=== PATIENT | female | born 1950 | race Caucasian/White ===

== ENCOUNTER → 2017-07-09 06:55 | Outpatient (CLI) | payer MEDICARE, OTHER, SELFPAY ==
--- NOTE | 2017-07-09 06:58 | ECHOCS_ITS ---
Reason For Study: DYSPNEA/SOB Procedure This was a 2D Doppler, Color Flow transthoracic echocardiogram. The study was technically difficult. Due to body habitus. Contrast injection was performed. Left Ventricle Normal LV size. Left ventricular systolic function is normal. The estimated ejection fraction is 60 %. Normal diastology for age. No regional wall motion abnormalities noted. Right Ventricle Normal RV size. Normal systolic function. Atria Normal left atrium. Normal right atrium. Mitral Valve Normal mitral valve. Tricuspid Valve Normal tricuspid valve. Mild (1+) tricuspid valve insufficiency. Pulmonary artery systolic pressure is 28 mmHg. Aortic Valve Normal aortic valve. Trisinus/trileaflet aortic valve. Pulmonic Valve Normal pulmonic valve. Great Vessels Normal aortic root. The pulmonary artery is normal size. Normal inferior vena cava. Pericardium/Pleural No pericardial effusion. Medication Diluted definity 2.0ml given slow IV push to enhance endocardial definition. MMode/2D Measurements & Calculations LVIDd: 4.1 cm IVSd: 1.1 cm Ao root diam: 3.0 cm LVIDs: 2.7 cm LVPWd: 1.1 cm LA dimension: 3.8 cm RVDd: 3.3 cm FS: 33.8 % LAV(MOD-bp): 50.6 ml LAV(MOD-bp) Indexed: 26.8 ml/m2 LA A4 area: 16.4 cm2 RA A4 area: 12.1 cm2 LAV(MOD-sp2): 57.9 ml LAV(MOD-sp4): 43.4 ml Doppler Measurements & Calculations MV E max luis: 97.6 cm/sec Lat Peak E' Luis: 9.6 cm/sec Med Peak E' Luis: 9.8 cm/sec MV A max luis: 87.6 cm/sec E/E' lat: 10.1 E/E' med: 10.0 MV E/A: 1.1 Ao V2 max: 168.2 cm/sec LV V1 max: 117.9 cm/sec PA V2 max: 78.7 cm/sec Ao max P.3 mmHg LV V1 max P.6 mmHg TR max luis: 238.6 cm/sec TR max P.2 mmHg Interpretation Summary Normal LV size. Left ventricular systolic function is normal. The estimated ejection fraction is 60 %. Normal diastology for age. Mild (1+) tricuspid valve insufficiency. Pulmonary artery systolic pressure is 28 mmHg. Contrast injection was performed. Ordering Physician: Manjit Henley MD Referring Physician: AVINASH Borden M.D. Performed By: Pricilla Peters, ELYSSA, RVT
--- NOTE | 2017-07-09 10:27 | STRESSREP_ITS ---
Stress Test Report Pharmacologic myocardial perfusion stress test. 67-year-old lady with a history of coronary artery disease status post carotid bypass surgery. Medications Lipitor aspirin losartan and metoprolol. Stress protocol: Resting EKG demonstrates normal sinus rhythm with a rate of 64 bpm normal intervals and noted resting blood pressure is 142/92 mmHg. 0.4 mg of regadenoson was infused per usual protocol followed by rapid intravenous saline flush injection continuous EKG monitoring was performed. At rest there were no ST or T-wave changes noted suggest abnormal flow reserve at peak infusion no ST or T-wave changes were noted suggest abnormal flow reserve. No clinical angina was noted. The resting blood pressure is 142/92 with a final blood pressure 138 /94. The peak blood pressure 150/92. Myocardial perfusion protocol. 14.2 mCi of technetium 99m sestamibi was injected at rest. 0.4 mg regadenoson was infused per usual protocol peak infusion 44.9 mCi 6 technetium 99m sestamibi was injected stress images were obtained stress and rest images were reconstructed and compared in the short axis vertical and horizontal long as gated images were also obtained Perfusion SPECT analysis: Review of the images demonstrate normal uptake of tracer noted in all areas myocardium no previous infarct was noted no ischemia was noted. The resting images demonstrated normal perfusion in all areas of the myocardium. Gated SPECT analysis. The gated ejection fraction is noted to be 65%. Conclusion: Normal pharmacologic myocardial perfusion stress test. Normal ejection fraction.
== END ==
PROVIDERS: Family Provider Family Medicine; PCP Family Medicine; Visit Provider Internal Medicine Cardiovascular Disease
DX: R06.02 Shortness of breath (principal); I25.10 Atherosclerotic heart disease of native coronary artery without angina pectoris; Z95.1 Presence of aortocoronary bypass graft; Z98.890 Other specified postprocedural states
CPT/HCPCS: 78452; 93017; 93306; A9500; Q9957; A4216; C8929; J2785

== ENCOUNTER → 2017-12-19 09:13 | Outpatient (CLI) | payer MEDICARE, OTHER, SELFPAY | PROVIDERS: Family Provider Family Medicine; PCP Family Medicine; Referring Provider Family Medicine; Visit Provider Family Medicine | DX: R00.2 Palpitations (principal) | CPT/HCPCS: 93225; 93226 ==

== ENCOUNTER → 2018-01-03 09:37 | Outpatient (CLI) | payer MEDICARE, OTHER, SELFPAY ==
--- NOTE | 2018-01-03 09:42 | RAD_ITS ---
STUDY: AIR-CONTRAST UPPER GI SERIES. REASON FOR EXAM: Female, 67 years old. Dysphagia. FLUOROSCOPY TIME (if supplied): (0:55) minutes/seconds. 27 images were obtained. TECHNIQUE: The patient ingested barium. Multiple images of esophagus, stomach and duodenum were obtained. COMPARISON: None. FINDINGS: The esophagus is unremarkable. There is no evidence of obstruction. No mass lesion is seen. The stomach and duodenum are unremarkable. There is no evidence of ulceration. No evidence of gastroesophageal reflux. IMPRESSION: No acute abnormality is seen. Electronically Signed: Beto Sotelo MD at 15:01 EDT Tel [phone], Service support , STUDY: X-RAY - ESOPHAGUS (BARIUM SWALLOW) WITH FLUOROSCOPY REASON FOR EXAM: Female, 67 years old. Dysphasia. TECHNIQUE: 14 view(s) of the esophagus were obtained following swallowing of barium. FLUOROSCOPY TIME (if supplied): (1:00) minutes/seconds COMPARISON: None. FINDINGS: There is no demonstrated esophageal foreign body. There is no demonstrated stricture or mucosal abnormality. There is a small hiatal hernia of the fundus of the stomach. The patient ingest a 12 mm tablet of barium without any difficulty. Normal visualized aortic arch and descending thoracic aorta. Normal visualized pulmonary parenchyma. Normal visualized osseous structures of the thorax. RAD/Upper GI w/BA Swallow IMPRESSION: Normal plain film x-ray examination (barium swallow) of the esophagus. Electronically Signed: Beto Sotelo MD at 15:02 EDT Tel [phone], Service support ,
== END ==
PROVIDERS: Family Provider Family Medicine; PCP Family Medicine; Referring Provider Surgery; Visit Provider Surgery
DX: R13.10 Dysphagia, unspecified (principal)
CPT/HCPCS: 74246

== ENCOUNTER 2019-03-25 15:23 | Emergency (ER) | payer MEDICARE, OTHER, SELFPAY ==
[2018-07-02 11:05] VITALS: BMI 39.4
[2019-03-25 15:24] VITALS: BP 153/107; PULSE 61; RESP 16; TEMP 36.6; O2SAT 96; BMI 34.0
--- NOTE | 2019-03-25 15:43 | ED.DCSUM_ITS ---
- ER Visit Summary Date of Service: 03/25/19 Chief Complaint: Laceration History of Present Illness: The patient is a [address] Kenneth Borden. Tetanus is not up-to-date. She is right-hand dominant. She reports that just prior to coming emerge department she tripped while going up the stairs with the plate and cut her right middle finger on a large piece of the plate. States that she has an aching pain that is 3 out of 10 at rest and 5-10 with movement. She denies any paresthesias distally. Physical Examination: Vitals: Stable. Afebrile. General: Well-nourished and well-developed. Head: Normocephalic atraumatic. Neck: Supple, no lymphadenopathy. No JVD. Nontender. Cardiovascular: Regular rate and rhythm. No murmurs. Respiratory: No respiratory distress. Clear to auscultation bilaterally. Abdominal: Soft, nontender, nondistended, normal bowel sounds. No guarding, rebound, or peritoneal signs. Back: Nontender. Extremities: 2 cm laceration at the base of her right middle finger on the lateral surface. She is neurovascular intact distal to this. Skin: Normal color, no rash. Neurologic: Alert and oriented ?3. Cranial nerves II through XII are intact. Normal strength and sensation. Psych: Normal affect. Emergency Department Course and Treatment: Patient reports that there were no small fragments. She does not feel as though there is a foreign body and does not want an x-ray obtained. She was given a dose of Adacel IM and had her wound anesthetized and repaired. She tolerated this well. Treatment Plan: Patient be discharged with instructions to follow-up with Dr. Kenneth Borden in 10 to 14 days for suture removal. Return to the emergency department for any worsening symptoms. Disposition: To home in improved and stable condition. Impression: 1 1. Laceration right middle finger, 2 cm, repaired. Procedure note: Wound was cleansed with chlorhexidine soap. Anesthetized with 1% lidocaine without epinephrine. Copiously irrigated with normal saline. Wound was explored there is no foreign material present. It was closed with 4 simple interrupted 4- 0 ethilon sutures. The patient tolerated it well. This note was generated with Epizymeation software. It may contain incorrect words, spelling, and punctuation that were not noted in review of the chart prior to signing ED Disposition - Plan for ED Patient: Instructions: LACERATION, Extrem (Suture, Staple or Tape) Referrals: Kenneth Borden III, MD [Primary Care Provider] - 10-14 Days suture removal
[2019-03-25] MEDS: Diphth,Pertuss(Acell),Tet Vac 0.5 ML Vial IM (15:48)
[2019-03-25 16:42] VITALS: RESP 17
== END 2019-03-25 16:43 | disposition home or self-care (01) ==
LOC: ED 15:44
PROVIDERS: Emergency Provider Emergency Medicine; PCP Family Medicine
DX: S61.212A Laceration without foreign body of right middle finger without damage to nail, initial encounter (principal); W26.8XXA Contact with other sharp object(s), not elsewhere classified, initial encounter; Y93.01 Activity, walking, marching and hiking; Y92.009 Unspecified place in unspecified non-institutional (private) residence as the place of occurrence of the external cause; Y99.8 Other external cause status
CPT/HCPCS: 12001; 90471; 90715; 99283

== ENCOUNTER 2020-09-13 05:29 | Day surgery (SDC) | payer MEDICARE, OTHER, SELFPAY ==
[2020-06-24 09:19] VITALS: BMI 41.3
[2020-08-30 10:02] VITALS: BMI 41.3
[2020-09-13] VITALS (7 sets, daily range): BP systolic 103–136; BP diastolic 50–70; PULSE 65–74; RESP 16; TEMP 35.8–36; O2SAT 96–100; BMI 39.1
[2020-09-13] MEDS: Lactated Ringers 1,000 ML 100 ML IV (06:04)
--- NOTE | 2020-09-13 06:14 | HP.PCM_ITS ---
History and Physical Date of Admission: 09/13/20 Intake Visit Reasons: LEFT LOWER QUADRANT PAIN Chief Complaint: LLQ pain Contact Lens Assistant Required: No Is patient in pain?: No Allergies sulfamethoxazole [From Bactrim] Allergy (Verified 08/30/20 10:02) Unknown trimethoprim [From Bactrim] Allergy (Verified 08/30/20 10:02) Unknown lisinopril Adverse Reaction (Verified 08/30/20 10:02) cough Medications metoprolol succinate 50 mg tablet,extended release 24 hr 50 mg PO QHS 06/27/17 [History Confirmed 08/30/20] diltiazem HCl 120 mg capsule,extended release 24 hr, controlled 120 mg PO QHS 07/02/18 [History Confirmed 08/30/20] omeprazole magnesium 20 mg tablet,delayed release 20 mg PO DAILY PRN 07/02/18 [History Confirmed 08/30/20] aspirin 81 mg tablet,delayed release 81 mg PO DAILY 06/12/19 [History Confirmed 08/30/20] losartan 100 mg tablet 100 mg PO QHS tab 06/12/19 [History Confirmed 08/30/20] atorvastatin 20 mg tablet 20 mg PO QHS #90 tab 01/06/20 [Rx Confirmed 08/30/20] Is last menstrual period known: No Post menopausal: Yes Patient : No PFSH Medical History (Updated 08/30/20 @ 11:00 by Ashlie RODAS, PA-C) Arthritis Atherosclerotic heart disease of [place] coronary artery without angina pectoris Cardiology follow-up encounter Dyslipidemia Essential (primary) hypertension Gallstones Gastroesophageal reflux disease GERD (gastroesophageal reflux disease) Gout Heartburn High cholesterol History of edema History of IBS History of irregular heartbeat History of renal disease History of stress test Hx of echocardiogram Muscle strain Non-smoker Obesity Personal history of colonic polyps Premature atrial contractions Restless legs Wears glasses Surgical History H/O coronary artery bypass surgery (11/15/12) H/O right knee surgery History of back surgery History of cardiac catheterization History of total hysterectomy Hx of colonoscopy Hx of tonsillectomy Family History Father CAD (coronary artery disease) Bleeding acute gastric ulcer Mother , lived to 83, [place] in her 50's Myocardial infarction CAD (coronary artery disease) Social History Smoking Status: Never smoker HPI HPI HPI: SAMMY VALVERDE, is a 70 F who presents to the office today for left lower quadrant pain. Patient states she was lifting heavy items approximately 1 week ago. She notes following lifting she has been experiencing left groin pain especially lifting her legs up or laying in bed. She also notes the discomfort during lifting. She was concerned about a hernia. She notes the the discomfort has improved over the last two days. She has noted normal bowel movements over the weekend. She denies melena. She notes occasional BRBPR due to hemorrhoids. She was scheduled for a colonoscopy and upper scope with Dr. Borden which was canceled due to the patient's new symptoms. It was also recommended the patient proceed to the ED or see her PCP for her new onset of symptoms and to be worked up. She was not able to accomplish either of those. She did wonder if a CT scan of the abdomen was needed that possibly we may be able to order the test. She denies nausea, vomiting, fever, chills. She denies weight loss or lack of appetite. ROS General General: Yes fatigue; No weight change, appetite, colon cancer, breast cancer or weakness HEENT HEENT: No difficulty swallowing, eye injury, eye surgery, swollen glands or hoarseness Endo Endocrine: No thyroid disease, diabetes mellitus, thyroid cancer, Hair loss, heat intolerance or cold intolerance Musc Musculoskeletal: No back problems, arthritis, rheumatoid arthritis, gout or joint pain Cardio Cardiovascular: Yes heart disease and high blood pressure; No murmur, pacemaker, atrial fibrillation, heart attack, heart stent, palpitations, shortness of breat with exertion or chest pain Psych Psychiatric: No depression, anxiety or hearing voices Resp Respiratory: No shortness of breath, No sleep apnea, No cough, No COPD, No asthma, No emphysema and No wheezing Gastro Gastrointestinal: Yes abdominal pain, No nausea or vomiting, Yes diarrhea, Yes constipation, No blood in stool, Yes acid reflux, No hemorrhoids, No ulcers, No gallbladder problem and No black,tarry stools Yefri Hematologic: No blood thinners, No blood disorders, No bleeding, No anemia and No blood clots Neuro Neurologic: No weakness Exam Const General: cooperative, healthy appearing, comfortable and no acute distress [facility] Head: normal to inspection Eyes General: appearance normal, both eyes and all related structures Neck Neck: normal visual inspection Neck mass: No Resp Effort & Inspection: normal respiratory effort Auscultation: clear to auscultation bilaterally Cardio Rate: regular rate Rhythm: regular rhythm GI Inspection: normal to inspection, large pannus and obesity Palpation: soft, no hernias, no masses and nontender Auscultation: hypoactive bowel sounds Skin General: no rashes or lesions noted Neuro General: no focal motor deficits and CN's II-XI intact bilaterally Extrem General: normal to inspection Psych Appearance: grossly normal Affect: normal affect Assessment and Plan Assessment and Plan (1) Muscle strain: Status: Acute Plan - Ashlie RODAS PA-C: I am not appreciating a femoral or inguinal hernia of the left groin. I believe she may have a strained muscle from lifting heavy items. I would recommend heat or ice and rest. Avoid lifting any heavy items. CT scan of the abdomen/pelvis is not indicated at this time. Discomfort is improving. May proceed with scheduling of upper/lower scopes with Dr. Borden. (2) Gastroesophageal reflux disease: Status: Acute Qualifiers: Esophagitis presence: esophagitis presence not specified Qualified Code(s): K21.9 - Gastro-esophageal reflux disease without esophagitis Plan - Ashlie RODAS PA-C: Dr. Borden will plan to perform an upper scope with possible biopsies. Procedure details, risks and benefits have been reviewed. (3) Personal history of colonic polyps: Status: Acute Plan - Ashlie RODAS PA-C: Dr. Borden will plan to perform a colonoscopy with possible biopsies. Procedure details, risks and benefits have been reviewed. Coding Level of Care Code Off vis,est,level 3 Diagnoses Muscle strain T14.8XXA Gastroesophageal reflux disease K21.9 Esophagitis presence: esophagitis presence not specified Personal history of colonic polyps Z86.010 08/30/20 1104<Electronically signed by Ashlie RODAS PA-C>Date Ashlie RODAS PA-C The patient states that she only has little twinges of left lower quadrant pain intermittently. She cannot associate it with any particular activity. She herself is not able to feel a mass or bulge. She has some intermittent hemorrhoidal complaints. No current bowel complaints. The more severe pain in the left lower quadrant has resolved. Shakir Borden M.D., F.A.C.S.
--- NOTE | 2020-09-13 06:30 | EGD_PTH ---
PATIENT: SAMMY VALVERDE LOC: EN U#:[id number] AGE/SX: 70/F ROOM: RE09/13/[address]: Dr. Shakir Borden MD : 1950 BED: DIS: 09/13/2020 SPEC #: [id number] RECD: 09/13/20 12:18 STATUS: EDNA SHANI #: [id number] ALISON: 09/13/20 06:[address]: Shakir Borden DEPT: SURGICAL PATHOLOGY RECD BY: Mariella Plummer ENTERED: 09/13/20 13:18 SP TYPE: EGD BIOPSY OTHR DR: No Primary Care Phys Tissues: A - Duodenum, NOS B - Gastric mucous membrane C - Gastric mucous membrane D - Esophagus, NOS E - COLON BIOPSY F - Transverse colon G - Sigmoid colon biopsy Procedures: Surgery Specimen Level IV HEADER OPERATION: [place], [place] [place] DIAGNOSIS: Left lower quadrant pain, GERD TISSUE SUBMITTED: A - Biopsy of duodenum, B - Antrum biopsy for H. pylori and path, C - GE junction biopsy, D - Mid esophagus biopsy, E - Random colonic biopsies, F - Biopsy of transverse colon polyp, G - Distal sigmoid polyp MICROSCOPIC DIAGNOSIS A. Duodenum, biopsy: Gastric metaplasia and mild chronic inflammation. B. Gastric antrum, biopsy: Mild chronic inflammation. See comment. C. Gastroesophageal junction, biopsy: Consistent with changes of reflux. Rare benign glandular epithelium present. See comment. D. Mid esophagus, biopsy: Focal changes suggestive of eosinophilic esophagitis. E. Colon, random biopsy: No significant pathologic change. See comment. F. Transverse colon polyp, biopsy: Fragments of tubular adenoma. G. Distal sigmoid colon polyp, biopsy: Tubular adenoma. AM:carolyn 09/14/2020 COMMENT B. The results of immunohistochemistry for Helicobacter pylori will be reported separately ([id number]). C. Rare glandular mucosa is presented in the biopsy. Clinical correlation is suggested. AB/PAS stain with matched control does not reveal goblet cell metaplasia. E. Eosinophils are mildly increased in the mucosa. The significance of this is unclear. MICROSCOPIC DESCRIPTION Slides are reviewed. GROSS DESCRIPTION A - Received in fixative is one container labeled with the patient's name and designated biopsy of duodenum. The specimen consists of one irregular fragment of light barcl[place] soft tissue that measures 0.3 x 0.3 x 0.1 cm. The specimen is totally submitted in one cassette. B - Received in fixative is one container labeled with the patient's name and designated antrum biopsy. The specimen consists of one irregular fragment of light barcl[place] soft tissue that measures 0.3 x 0.3 x 0.1 cm. The specimen is totally submitted in one cassette. C - Received in fixative is one container labeled with the patient's name and designated GE junction biopsy. The specimen consists of multiple irregular fragments of light barcl[place] soft tissue that in aggregate measure 0.8 x 0.3 x 0.1 cm. The specimen is totally submitted in one cassette. D - Received in fixative is one container labeled with the patient's name and designated mid esophagus biopsy. The specimen consists of two irregular fragments of light barcl[place] soft tissue that in aggregate measure 0.5 x 0.5 x 0.1 cm. The specimen is totally submitted in one cassette. E - Received in fixative is one container labeled with the patient's name and designated random colonic biopsy. The specimen consists of multiple irregular fragments of light barclay soft tissue that in aggregate measure 1.4 x 0.4 x 0.1 cm. The specimen is totally submitted in one cassette. F - Received in fixative is one container labeled with the patient's name and designated transverse colon polyp. The specimen consists of multiple irregular fragments of light barcl[place] soft tissue that in aggregate measure 1 x 0.3 x 0.1 cm. The specimen is totally submitted in one cassette. G - Received in fixative is one container labeled with the patient's name and designated distal sigmoid polyp. The specimen consists of a pink-red polyp measuring 0.7 x 0.7 x 0.5 cm. The presumed base is inked. The polyp is bisected and submitted entirely in one cassette. / SJ:rg 09/13/20 TC:3 CPT: 95194 x7
--- NOTE | 2020-09-13 06:30 | IMM_PTH ---
PATIENT: SAMMY VALVERDE LOC: EN U#:[id number] AGE/SX: 70/F ROOM: RE09/13/[address]: Dr. Shakir Borden MD : 1950 BED: DIS: 09/13/2020 SPEC #: [id number] RECD: 09/13/20 13:41 STATUS: EDNA REBhaskar #: [id number] ALISON: 09/13/20 06:[address]: Shakir Borden DEPT: IMMUNOHISTOCHEMISTRY RECD BY: Azul Zarate ENTERED: 09/13/20 13:42 SP TYPE: IMMUNO OTHR DR: Nirali Primary Care Phys Tissues: B - Stomach, NOS Procedures: H Pylori (initial) PHYSICIAN & INSTITUTION [place] [id number] SPECIMEN INFORMATION: Tissue Source: B ? Antrum biopsy Clinical Info: Left lower quadrant pain, GERD Specimen Number: [id number] CPT code: 58400 METHODOLOGY: Deparaffinized sections of prefer/formalin-fixed tissue or PAP/DQ stained slides are incubated with monoclonal/polyclonal antibodies/oligonucleotide probes. Localization is made via biotin free immunoperoxidase method. Appropriate controls are performed and reacted as expected. Results on target cell population are indicated in the following table: RESULTS: ANTIBODY / CLONE RESULT Block B H Pylori (polyclonal) negative These tests were developed and their performance characteristics determined by [facility]. They may not have been cleared or approved by the U.S. Food and Drug Administration. The FDA has determined that such clearance or approval is not necessary. INTERPRETATION: B. Antrum biopsy: Negative for Helicobacter pylori organisms. AM:carolyn 09/14/2020
--- NOTE | 2020-09-13 07:16 | OP.EGD_ITS ---
Patient Name: Eladia Cuellar Procedure Date: 09/13/2020 6:20 AM Date of : 1950 Age: 70 Procedure: Upper GI endoscopy Indications: Suspected gastro-esophageal reflux disease Providers: Shakir Borden MD Referring MD: Shakir Borden MD Medicines: See the Anesthesia note for documentation of the administered medications Complications: No immediate complications. Procedure: Pre-Anesthesia Assessment: - Prior to the procedure, a History and Physical was performed, and patient medications and allergies were reviewed. The patient's tolerance of previous anesthesia was also reviewed. The risks and benefits of the procedure and the sedation options and risks were discussed with the patient. All questions were answered, and informed consent was obtained. Prior Anticoagulants: The patient has taken no previous anticoagulant or antiplatelet agents. ASA Grade Assessment: II - A patient with mild systemic disease. After reviewing the risks and benefits, the patient was deemed in satisfactory condition to undergo the procedure. After obtaining informed consent, the endoscope was passed under direct vision. Throughout the procedure, the patient's blood pressure, pulse, and oxygen saturations were monitored continuously. The Endoscope was introduced through the mouth, and advanced to the second part of duodenum. The upper GI endoscopy was accomplished without difficulty. The patient tolerated the procedure well. Scope In: 6:33:17 AM Scope Out: 6:41:27 AM Total Procedure Duration Time 0 hours 8 minutes 10 seconds Findings: LA Grade A (one or more mucosal breaks less than 5 mm, not extending between tops of 2 mucosal folds) esophagitis with no bleeding was found 38 cm from the incisors. Biopsies were taken with a cold forceps for histology. One benign-appearing, intrinsic stenosis was found 38 cm from the incisors. This stenosis was mildly severe (non-circumferential scarring) and measured 1 mm (inner diameter). The stenosis was traversed. A small hiatal hernia was present. Diffuse mildly erythematous mucosa without bleeding was found in the gastric antrum. Biopsies were taken with a cold forceps for histology. Diffuse mildly erythematous mucosa without active bleeding and with no stigmata of bleeding was found in the duodenal bulb. Biopsies were taken with a cold forceps for histology. The middle third of the esophagus was normal. Biopsies were taken with a cold forceps for histology. Impression: - LA Grade A reflux esophagitis. Biopsied. - Benign-appearing esophageal stenosis. Very minimal and mostly inflammation from reflux. No treatment indicated - Small hiatal hernia. - Erythematous mucosa in the antrum. Biopsied. - Erythematous duodenopathy. Biopsied. Recommendation: - Discharge patient to home. - Resume previous diet. - Continue present medications. - Telephone my office for pathology results in 1 week. Procedure Code(s): --- Professional --- 02243, Esophagogastroduodenoscopy, flexible, transoral; with biopsy, single or multiple Diagnosis Code(s): --- Professional --- K21.0, Gastro-esophageal reflux disease with esophagitis K22.2, Esophageal obstruction K44.9, Diaphragmatic hernia without obstruction or gangrene K31.89, Other diseases of stomach and duodenum CPT copyright 2017 [employer]. All rights reserved. The codes documented in this report are preliminary and upon legal writing professor review may be revised to meet current compliance requirements. Shakir Borden MD 09/13/2020 7:16:21 AM This report has been signed electronically. Number of Addenda: 0 Note Initiated On: 09/13/2020 6:20 AM
--- NOTE | 2020-09-13 07:16 | OP.CCLET_ITS ---
09/13/2020 No Primary Care Physician Re : Upper GI endoscopy procedure for Eladia Cuellar Dear Care Physician This procedure was performed on Sunday, September 13, 2020. My impressions and recommendations are as follows: Impressions : - LA Grade A reflux esophagitis. Biopsied. - Benign-appearing esophageal stenosis. Very minimal and mostly inflammation from reflux. No treatment indicated - Small hiatal hernia. - Erythematous mucosa in the antrum. Biopsied. - Erythematous duodenopathy. Biopsied. Recommendations : - Discharge patient to home. - Resume previous diet. - Continue present medications. - Telephone my office for pathology results in 1 week. My findings are described in the full procedure note, which is enclosed. If I can be of further assistance, please feel free to contact me at Doctor phone number(s): Work: . Sincerely, Shakir Borden MD 09/13/2020 7:16:21 AM This report has been signed electronically.
--- NOTE | 2020-09-13 07:20 | OP.COLON_ITS ---
Patient Name: Eladia Cuellar Procedure Date: 09/13/2020 6:45 AM Date of : 1950 Age: 70 Procedure: Colonoscopy Indications: High risk colon cancer surveillance: Personal history of colonic polyps Providers: Shakir Borden MD Referring MD: Shakir Borden MD Medicines: See the Anesthesia note for documentation of the administered medications Patient Profile: Last Colonoscopy: April 2015. Complications: No immediate complications. Procedure: Pre-Anesthesia Assessment: - Prior to the procedure, a History and Physical was performed, and patient medications and allergies were reviewed. The patient's tolerance of previous anesthesia was also reviewed. The risks and benefits of the procedure and the sedation options and risks were discussed with the patient. All questions were answered, and informed consent was obtained. Prior Anticoagulants: The patient has taken no previous anticoagulant or antiplatelet agents. ASA Grade Assessment: II - A patient with mild systemic disease. After reviewing the risks and benefits, the patient was deemed in satisfactory condition to undergo the procedure. After I obtained informed consent, the scope was passed under direct vision. Throughout the procedure, the patient's blood pressure, pulse, and oxygen saturations were monitored continuously. The adult colonoscope was introduced through the anus and advanced to the cecum, identified by appendiceal orifice and ileocecal valve. The colonoscopy was performed without difficulty. The patient tolerated the procedure well. The quality of the bowel preparation was good. The ileocecal valve and the appendiceal orifice were photographed. Scope In: 6:46:13 AM Scope Withdrawal Time 0 hours 16 minutes 52 seconds Scope Out: 7:09:10 AM Total Procedure Duration Time 0 hours 22 minutes 57 seconds Findings: The digital rectal exam findings include non-thrombosed external hemorrhoids, non-thrombosed internal hemorrhoids and internal hemorrhoids that prolapse with straining, but require manual replacement into the anal canal (Grade III). A 5 mm polyp was found in the mid transverse colon. The polyp was sessile. The polyp was removed with a cold biopsy forceps. Resection and retrieval were complete. A 10 mm polyp was found in the distal sigmoid colon. The polyp was pedunculated. The polyp was removed with a hot snare. Resection and retrieval were complete. Biopsies for histology were taken with a cold forceps from the entire colon for evaluation of microscopic colitis. The colon (entire examined portion) was moderately tortuous. Advancing the scope required applying abdominal pressure. Impression: - Non-thrombosed external hemorrhoids, non-thrombosed internal hemorrhoids and internal hemorrhoids that prolapse with straining, but require manual replacement into the anal canal (Grade III) found on digital rectal exam. - One 5 mm polyp in the mid transverse colon, removed with a cold biopsy forceps. Resected and retrieved. - One 10 mm polyp in the distal sigmoid colon, removed with a hot snare. Resected and retrieved. - Tortuous colon. - Biopsies were taken with a cold forceps from the entire colon for evaluation of microscopic colitis. Recommendation: - Discharge patient to home. - Resume previous diet. - Continue present medications. - Repeat colonoscopy in 5 years for surveillance based on pathology results. - Telephone my office for pathology results in 1 week. Procedure Code(s): --- Professional --- 09572, Colonoscopy, flexible; with removal of tumor(s), polyp(s), or other lesion(s) by snare technique 02228, 59, Colonoscopy, flexible; with biopsy, single or multiple Diagnosis Code(s): --- Professional --- Z86.010, Personal history of colonic polyps K64.2, Third degree hemorrhoids K64.4, Residual hemorrhoidal skin tags D12.3, Benign neoplasm of transverse colon (hepatic flexure or splenic flexure) D12.5, Benign neoplasm of sigmoid colon Q43.8, Other specified congenital malformations of intestine CPT copyright 2017 [employer]. All rights reserved. The codes documented in this report are preliminary and upon curbing stonecutter review may be revised to meet current compliance requirements. Shakir Borden MD 09/13/2020 7:19:40 AM This report has been signed electronically. Number of Addenda: 0 Note Initiated On: 09/13/2020 6:45 AM
--- NOTE | 2020-09-13 07:20 | OP.CCLET_ITS ---
09/13/2020 No Primary Care Physician Re : Colonoscopy procedure for Eladia Cuellar Dear Care Physician This procedure was performed on Sunday, September 13, 2020. My impressions and recommendations are as follows: Impressions : - Non-thrombosed external hemorrhoids, non-thrombosed internal hemorrhoids and internal hemorrhoids that prolapse with straining, but require manual replacement into the anal canal (Grade III) found on digital rectal exam. - One 5 mm polyp in the mid transverse colon, removed with a cold biopsy forceps. Resected and retrieved. - One 10 mm polyp in the distal sigmoid colon, removed with a hot snare. Resected and retrieved. - Tortuous colon. - Biopsies were taken with a cold forceps from the entire colon for evaluation of microscopic colitis. Recommendations : - Discharge patient to home. - Resume previous diet. - Continue present medications. - Repeat colonoscopy in 5 years for surveillance based on pathology results. - Telephone my office for pathology results in 1 week. My findings are described in the full procedure note, which is enclosed. If I can be of further assistance, please feel free to contact me at Doctor phone number(s): Work: . Sincerely, Shakir Borden MD 09/13/2020 7:19:40 AM This report has been signed electronically.
== END 2020-09-13 08:00 ==
LOC: EN 05:30 → AC 05:31
PROVIDERS: Referring Provider Surgery; Visit Provider Surgery
PROC: 0DJD8ZZ Inspection of Lower Intestinal Tract, Via Natural or Artificial Opening Endoscopic (ICD-10-PCS; CPT 45378; principal; 2020-09-13 06:25)
DX: K29.80 Duodenitis without bleeding (principal); K29.50 Unspecified chronic gastritis without bleeding; D12.5 Benign neoplasm of sigmoid colon; D12.3 Benign neoplasm of transverse colon; K64.2 Third degree hemorrhoids; K21.00 Gastro-esophageal reflux disease with esophagitis, without bleeding; K44.9 Diaphragmatic hernia without obstruction or gangrene; K22.2 Esophageal obstruction; M19.90 Unspecified osteoarthritis, unspecified site; I25.10 Atherosclerotic heart disease of native coronary artery without angina pectoris; E78.5 Hyperlipidemia, unspecified; K21.9 Gastro-esophageal reflux disease without esophagitis; Z86.010 Personal history of colon polyps; I10 Essential (primary) hypertension; E66.9 Obesity, unspecified; Z68.39 Body mass index [BMI] 39.0-39.9, adult; Z79.899 Other long term (current) drug therapy
CPT/HCPCS: 43239; 45380; 87426; 88305; 88342; C9803; J7120; J2405

== ENCOUNTER → 2021-01-06 11:13 | Outpatient (CLI) | payer MEDICARE, OTHER, SELFPAY ==
[2021-01-06 13:21] LABS: AST(SGOT) 40 U/L (15-37); Alanine Aminotransfer ALT/SGPT 54 U/L (13-56); Albumin, Serum 3.5 g/dL (3.2-5.0); Alkaline Phosphatase 103 U/L (45-117); Bilirubin, Direct 0.09 mg/dL (0.00-0.30); Cholesterol 269 mg/dL (200); High Density Lipoprotein 57 mg/dL; Protein, Total 7.5 g/dL (6.4-8.2); Triglycerides 138 mg/dL; Very Low Density Lipoprotein 28 mg/dL (5-40)
== END ==
PROVIDERS: Referring Provider Nurse Practitioner Family; Visit Provider Nurse Practitioner Family
DX: E78.5 Hyperlipidemia, unspecified (principal)
CPT/HCPCS: 36415; 80061; 80076

== ENCOUNTER → 2024-06-05 | Outpatient (CLI) | payer MEDICARE, OTHER, SELFPAY ==
[2024-06-05 11:57] LABS: Absolute Lymphocyte Count 1.91 X10^3/uL (0.83-4.51); Absolute Neutrophil Count 4.2 X10^3/uL (2.0-7.7); Basophil# 0.03 X10^3/uL; Basophil% 0.4 % (0-1); Eosinophil# 0.22 X10^3/uL; Eosinophils% 3.2 % (0-5); Hematocrit 43.5 % (37-47); Hemoglobin 14.5 g/dL (12.0-15.0); Lymphocyte # 1.91 X10^3/ul (0.83-4.51); Mean Corp Hgb Conc 33.3 g/dL (32-36); Mean Corpuscular Hgb 28.1 pg (27.0-32.0); Mean Corpuscular Volume 84.3 fL (81-99); Mean Platelet Vol. 11.2 fl (6.2-12.0); Monocyte# 0.48 X10^3/uL; NRBC Flagged by Analyzer 0 % (0-5); Neutrophil # 4.16 X10^3/uL (2.7-7.7); Neutrophil % 61.3 % (47-70); Platelet Count 212 K/mm3 (150-450); RBC Distribution Width CV 14.4 % (11.6-14.6); RBC Distribution Width SD 44.2 fl (35.1-43.9); Red Blood Count 5.16 M/mm3 (4.2-5.4); White Blood Count 6.8 K/mm3 (4.4-11.0)
[2024-06-05 14:13] LABS: AST(SGOT) 38 U/L (<=31); Alanine Aminotransfer ALT/SGPT 51 U/L (<=34); Alkaline Phosphatase 75 U/L (35-104); Anion Gap 13 (5-15); BUN 22 mg/dL (4-19); BUN/Creat Ratio 25.2 RATIO (10-20); Bilirubin, Direct 0.24 mg/dL (0.00-0.30); Calcium,Total 9.5 mg/dL (7.6-11.0); Carbon Dioxide 22.6 mmol/L (21.0-32.0); Chloride 104 mmol/L (98-108); Cholesterol 275 mg/dL (<=200); Creatinine, Serum 0.86 mg/dL (0.70-1.20); EST Glomerular Filtration Rate 72 (>60); Globulin 2.9 g/dL (2.2-4.2); Glucose 115 mg/dL (70-99); High Density Lipoprotein 64 mg/dL; Low Density Lipoprotein Calc. 177 mg/dL; Potassium 3.5 mmol/L (3.3-5.1); Protein, Total 6.9 g/dL (5.9-8.4); Sodium Level 140 mmol/L (133-145); Total Bilirubin 0.64 mg/dL (0.00-1.30); Triglycerides 167 mg/dL; Very Low Density Lipoprotein 33 mg/dL (5-40); cholesterol:hdl ratio screen 4.27
== END | disposition home or self-care (01) ==
LOC: LAB 11:11
PROVIDERS: PCP Family Medicine; Referring Provider Internal Medicine Cardiovascular Disease; Visit Provider Internal Medicine Cardiovascular Disease
DX: E78.5 Hyperlipidemia, unspecified (principal); I10 Essential (primary) hypertension; Z95.1 Presence of aortocoronary bypass graft
CPT/HCPCS: 36415; 80048; 80061; 80076; 84443; 85025

== ENCOUNTER 2024-06-20 22:16 | Emergency (ER) | payer MEDICARE, OTHER, SELFPAY ==
[2024-06-20 22:18] VITALS: BP 154/93; PULSE 68; RESP 18; TEMP 36.2; O2SAT 94; BMI 38.5
--- NOTE | 2024-06-20 22:44 | CT_ITS ---
PROCEDURE: SOFT TISSUE NECK WITHOUT CONTR 06/20/2024 REASON FOR EXAM: ? FB TECHNIQUE: CT of the soft tissues of the neck from the orbits to the upper mediastinum with intravenous contrast. CONTRAST: None VOLUME: None ML Not Provided Gauge IV One or more dose reduction techniques were used (e.g., Automated exposure control, adjustment of the mA and/or kV according to patient size, use of iterative reconstruction technique). RADIATION DOSE SUMMARY: CTDlvol: 17 mGy DLP: 483 mGycm COMPARISON: None FINDINGS: Airway: Midline and patent. Salivary glands: Fatty replacement of the parotid glands. Lymph nodes: Prominent cervical lymph nodes. Thyroid: Unremarkable. Vasculature: Carotid arteries and internal jugular veins are unremarkable. Orbits: Unremarkable at visualized levels. Paranasal sinuses and mastoids: Grossly clear at visualized levels. Lung apices: Clear. Upper mediastinum: Visualized mediastinum is unremarkable. Bones: Multilevel degenerative changes of the spine. Other: No radiopaque foreign body. CT/Soft Tissue Neck without Contr IMPRESSION: No radiopaque foreign body. Reading Location: [facility]
[2024-06-21 00:17] VITALS: BP 147/76; PULSE 61; RESP 16; O2SAT 97
--- NOTE | 2024-06-21 01:04 | EX.ED.DYSGE1 ---
HPI History of Present Illness Chief Complaint: Foreign Body Informant: patient and spouse/S.O. Narrative Narrative: Patient is a 74-year-old female with past medical history of GERD and hypertension and CAD. 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 She states that she ate her first bite quickly as she was hungry and felt like there was a bone that got lodged in her upper throat. She states she can still swallow without bouts of vomiting but it is painful to do so. With the persistent pain she is concerned that there may be a foreign object such as a fishbone present and therefore comes in for evaluation [facility] Medical History Muscle strain Wears glasses Gout Arthritis History of renal disease High cholesterol Restless legs History of IBS Heartburn Non-smoker History of edema Hx of echocardiogram History of stress test Cardiology follow-up encounter History of irregular heartbeat Gastroesophageal reflux disease Personal history of colonic polyps Premature atrial contractions Essential (primary) hypertension Obesity GERD (gastroesophageal reflux disease) Gallstones Atherosclerotic heart disease of [place] coronary artery without angina pectoris Dyslipidemia Home Medications ?Medication ?Instructions ?Recorded ?Last Taken ?Type omeprazole magnesium 20 mg 20 mg PO DAILY PRN Heartburn 07/02/18 Unknown History tablet,delayed release (Prilosec OTC) aspirin 81 mg tablet,delayed 81 mg PO DAILY 06/12/19 Unknown History release (Adult Aspirin Regimen) losartan 100 mg tablet 100 mg PO QHS #90 tabs 10/02/23 Unknown Rx hydrochlorothiazide 25 mg tablet 25 mg PO DAILY #90 tabs 06/05/24 Unknown Rx metoprolol succinate 100 mg 100 mg PO QHS #90 tabs 06/05/24 Unknown Rx tablet,extended release 24 hr Allergy/AdvReac Type Severity Reaction Status Date / Time sulfamethoxazole (From Allergy Unknown Verified 06/20/24 22:18 Bactrim) trimethoprim (From Bactrim) Allergy Unknown Verified 06/20/24 22:18 lisinopril AdvReac cough Verified 06/20/24 22:18 Family History Father CAD (coronary artery disease) Bleeding acute gastric ulcer Mother , lived to 83, [place] in her 50's Myocardial infarction CAD (coronary artery disease) Surgical History History of cardiac catheterization Hx of colonoscopy Hx of tonsillectomy H/O coronary artery bypass surgery (11/15/12) H/O right knee surgery History of total hysterectomy History of back surgery Social History Smoking Status: Never smoker ROS ROS ED Constitutional Constitutional ED: Denies chills or fever(s) ENT ENT ED: Reports sore throat Cardiovascular Cardiovascular: Denies chest pain Respiratory/Chest Respiratory/Chest: Denies cough or dyspnea Gastrointestinal Gastrointestinal: Denies abdominal pain, diarrhea, nausea or vomiting Genitourinary Genitourinary ED: Denies dysuria Musculoskeletal Musculoskeletal: Denies myalgias or neck pain Integumentary Denies rash Neurologic Neurologic: Denies headache(s) Hematologic/Lymphatic Hematologic/Lymphatic: Denies easy bleeding or easy bruising Allergic/Immunologic Allergic/Immunologic ED: Denies mouth swelling or tongue swelling EXAM Physical Exam Const Vital Signs: 06/20/24 22:18 06/20/24 22:20 Temperature 97.1 F L Temperature Source Temporal Pulse Rate 68 Respiratory Rate 18 Respiratory Effort Normal Non-Labored Respiratory Pattern Normal Blood Pressure 154/93 H Blood Pressure Mean 113 Pulse Ox 94 Oxygen Delivery Method Room Air Positive well nourished and well developed General Appearance ED: well developed; Negative for pallor HEENT Reports moist mucous membranes HEENT Narrative: No tongue or lip swelling no oral lesions no airway edema or compromise No bleeding or dried blood noted in the posterior pharynx Eyes PERRL and EOMs intact bilaterally Neck supple Neck Narrative: No subcutaneous emphysema noted No pain with external manipulation of the thyroid cartilage Resp normal respiratory effort and clear to auscultation bilaterally Cardio regular rate and regular rhythm GI normal to inspection, nondistended, normoactive bowel sounds, non-tender, non-distended and no masses Auscultation: normoactive bowel sounds Palpation: soft Extremity normal to inspection Neuro oriented x3, CN's II-XII intact bilaterally and no sensory deficits noted Sensorium / Orientation: alert Motor Exam: strength 5/5 throughout Psych mental status grossly normal Skin no rashes or lesions noted and no wounds General Skin Exam: Negative for jaundice or pallor MDM MDM MDM Narrative Medical decision making narrative: Patient arrived to the ER slightly hypertensive but has a past medical history of this and otherwise with stable vitals. She reported a foreign body sensation in her throat after eating fish. There is a concern for a partial esophageal obstruction from a fishbone or potential perforation. She does not have signs of tracheal foreign body as there is no respiratory distress and breath sounds are clear. I did elect to perform a CT scan to check for foreign object and/or perforation. Unfortunately there was a technical error where the radiologist is unable to relay/convey the report of the CT scan. The patient reported spontaneous resolution of symptoms while in the hospital. She does not have subcutaneous emphysema she does not have pain with thyroid manipulation there is no bouts of nausea vomiting or respiratory distress and she can swallow without difficulty. Therefore concern for perforation or retained esophageal foreign body is extremely low. As the official read is not returning at a acceptable rate and the patient has had spontaneous resolution of symptoms she is asking to be discharged. Therefore I will comply with her wishes and discharge her home as exam and history is not showing any obvious signs of a foreign object or perforation. History & Record Review Discussion w/independent historian: Patient and Significant other Discharge Plan Triage Chief Complaint: Foreign Body ED Provider: Frandy Payton Dx/Rx/DC Orders Clinical Impression: Esophageal foreign body, Essential (primary) hypertension, Dyslipidemia, Gastroesophageal reflux disease Instructions: ED Esophageal Foreign Body, Resolved Prescriptions: No Action Prilosec OTC 20 mg tablet,delayed release (DR/EC) 20 mg PO DAILY PRN (Reason: Heartburn) aspirin [Adult Aspirin Regimen] 81 mg tablet,delayed release (DR/EC) 81 mg PO DAILY hydrochlorothiazide 25 mg tablet 25 mg PO DAILY Qty: 90 3RF metoprolol succinate 100 mg tablet extended release 24 hr 100 mg PO QHS Qty: 90 3RF losartan 100 mg tablet 100 mg PO QHS Qty: 90 3RF Primary Care Provider: Parish Riggs Referrals: Parish Riggs MD [Primary Care Provider] - Activity Restrictions/Additional Instructions: If you have any further concerns or worsening symptoms please return to the ER for repeat evaluation Print Language: Bermudian Disposition Disposition: Home, Self Care Discharge Date/Time: 06/21/24 01:14
== END 2024-06-21 01:14 | disposition home or self-care (01) ==
PROVIDERS: Emergency Provider Emergency Medicine; PCP Family Medicine; Referring Provider Emergency Medicine; Visit Provider Emergency Medicine
DX: T18.108A Unspecified foreign body in esophagus causing other injury, initial encounter (principal); K21.9 Gastro-esophageal reflux disease without esophagitis; E78.5 Hyperlipidemia, unspecified; I10 Essential (primary) hypertension; I25.10 Atherosclerotic heart disease of native coronary artery without angina pectoris; W44.F3XA Food entering into or through a natural orifice, initial encounter
CPT/HCPCS: 70490; 99282

== ENCOUNTER → 2024-06-30 | Outpatient (CLI) | payer MEDICARE, OTHER, SELFPAY ==
--- NOTE | 2024-06-30 06:23 | ECHOD_ITS ---
Reason For Study Reason For Study: CAD Procedure This was a 2D Doppler, Color Flow transthoracic echocardiogram. Exam performed in department. Left Ventricle Normal LV size. Left ventricular systolic function is normal. The left ventricular ejection fraction is 65 %. No regional wall motion abnormalities noted. Right Ventricle Normal RV size. Normal systolic function. Atria Normal left atrium. Normal right atrium. Mitral Valve Normal mitral valve. Trivial eccentric mitral valve insufficiency. Tricuspid Valve Normal tricuspid valve. Mild to moderate (1-2+) tricuspid valve insufficiency. Pulmonary artery systolic pressure is 33 mmHg. Aortic Valve Trisinus/trileaflet aortic valve. Mild focal aortic valve calcification. Mild (1+) eccentric aortic valve insufficiency. Pulmonic Valve Normal pulmonic valve. Great Vessels Mildly calcified aortic root. The pulmonary artery is normal size. Inferior vena cava collapse with respiration. Pericardium/Pleural No pericardial effusion. MMode/2D Measurements & Calculations LVIDd: 4.3 cm IVSd: 0.99 cm LVOT diam: 1.9 cm LVIDs: 2.3 cm LVPWd: 0.98 cm LVOT area: 2.7 cm2 RVDd: 3.2 cm FS: 45.4 % Ao root diam: 3.5 cm LAV(MOD-bp): 51.7 ml LVAd ap4: 23.5 cm2 LAV(MOD-bp) Indexed: 27.3 ml/m2 LVLd ap4: 7.2 cm LAV(MOD-sp2): 52.7 ml EDV(MOD-sp4): 65.2 ml LAV(MOD-sp4): 47.8 ml EDV(sp4-el): 65.2 ml LVAs ap4: 10.7 cm2 LVLs ap4: 5.9 cm ESV(MOD-sp4): 17.1 ml ESV(sp4-el): 16.4 ml EF(MOD-sp4): 73.8 % EF(sp4-el): 74.8 % LVAd ap2: 19.4 cm2 SV(MOD-sp4): 48.1 ml SV(MOD-sp2): 34.3 ml LVLd ap2: 6.7 cm SI(MOD-sp4): 25.4 ml/m2 SI(MOD-sp2): 18.1 ml/m2 EDV(MOD-sp2): 49.6 ml EDV(sp2-el): 47.7 ml LVAs ap2: 9.8 cm2 LVLs ap2: 5.7 cm ESV(MOD-sp2): 15.3 ml ESV(sp2-el): 14.3 ml EF(MOD-sp2): 69.1 % SV(sp4-el): 48.8 ml LA dimension(2D): 3.8 cm LA A4 area: 18.3 cm2 RA A4 area: 9.4 cm2 TAPSE: 1.6 cm Time Measurements MV dec time: 0.16 sec Doppler Measurements & Calculations MV E max luis: 79.8 cm/sec Lat Peak E' Luis: 10.8 cm/sec Med Peak E' Luis: 8.5 cm/sec MV A max luis: 83.7 cm/sec E/E' lat: 7.4 E/E' med: 9.4 MV E/A: 0.95 Ao V2 max: 194.8 cm/sec AI max luis: 323.8 cm/sec MV dec slope: 506.8 cm/sec2 Ao max P.2 mmHg AI max P.9 mmHg Ao V2 mean: 119.7 cm/sec Ao mean P.8 mmHg AI dec slope: 162.8 cm/sec2 Ao V2 VTI: 40.7 cm AI P1/2t: 582.4 msec AV (velocity ratio): 0.81 [facility](I,D): 2.2 cm2 [facility](V,D): 2.0 cm2 LV V1 max: 145.6 cm/sec SV(LVOT): 88.7 ml PA V2 max: 83.3 cm/sec LV V1 max P.5 mmHg LV V1 mean P.1 mmHg LV V1 mean: 92.9 cm/sec LV V1 VTI: 32.9 cm TR max luis: 270.6 cm/sec TR max P.3 mmHg ECHO/Echo Complete Interpretation Summary Normal LV size. Left ventricular systolic function is normal. The left ventricular ejection fraction is 65 %. Mild focal aortic valve calcification. Ordering Physician: Manjit Henley Referring Physician: Parish Riggs Performed By: Violette Lubin RDCS
--- NOTE | 2024-07-01 07:32 | STRESSREP ---
Stress Test Report Pharmacologic myocardial perfusion stress test. 74-year-old lady with a history of coronary bypass surgery Resting EKG demonstrates sinus rhythm with a rate of 62 bpm. Resting blood pressure is 124/70 mmHg. 0.4 mg of regadenoson was infused per usual protocol followed by rapid intravenous saline flush injection. Continuous EKG monitoring was performed. The maximum heart rate was 88 bpm which was 59% of max impacted heart rate the maximum workload was 1 metabolic equivalent. At rest there were no ST or T wave changes noted to suggest ischemia and at peak infusion nonspecific ST changes were noted which did not meet the criteria for ischemia. No clinical angina is noted. The final blood pressure was 112/64 mmHg. Myocardial perfusion protocol. 13.8 mCi of technetium 99m sestamibi was injected at rest. 0.4 mg of regadenoson was infused per usual protocol. At peak infusion 41.1 mCi of technetium 99m sestamibi was injected stress images were obtained stress and rest images were reconstructed and compared in the short axis vertical long and horizontal long axis. Gated images were also obtained. Perfusion SPECT analysis: Review of the stress images demonstrate normal uptake of tracer noted in all areas of the myocardium. The resting images similar demonstrated normal uptake of tracer noted in all areas of the myocardium. No areas of reversibility are noted to suggest ischemia and no previous infarct is noted. Gated SPECT analysis: The gated ejection fraction is 86%. Conclusion: Normal pharmacologic myocardial perfusion stress test. Preserved ejection fraction.
== END | disposition home or self-care (01) ==
LOC: CVS 06:22
PROVIDERS: PCP Family Medicine; Referring Provider Internal Medicine Cardiovascular Disease; Visit Provider Internal Medicine Cardiovascular Disease
DX: I25.10 Atherosclerotic heart disease of native coronary artery without angina pectoris (principal); Z95.1 Presence of aortocoronary bypass graft; I10 Essential (primary) hypertension
CPT/HCPCS: 78452; 93017; 93306; A9500; A4216; J2785